=== PATIENT | male | born 1980 | race Caucasian/White ===

== ENCOUNTER 2019-02-08 19:00 | Inpatient (IN) | payer MEDICAID ==
[2019-02-09 00:07] LABS: ADD MAN DIFF? NO
[2019-02-09 00:13] LABS: BASOPHIL # 0.1 10^3/ul (0.0-0.1); BASOPHILS % 0.4 % (0.0-2.0); EOSINOPHILS # 0.2 10^3/ul (0.0-0.5); EOSINOPHILS % 1.5 % (0.0-7.0); HEMATOCRIT 31.8 % (42.0-52.0); HEMOGLOBIN 10.4 g/dl (14.0-18.0); LYMPHOCYTES % 14.5 % (15.0-51.0); MEAN CORPUSCULAR HEMOGLOBIN 27.7 pg (29.0-33.0); MEAN CORPUSCULAR HGB CONC 32.7 g/dl (32.0-37.0); MEAN CORPUSCULAR VOLUME 84.8 fl (82.0-101.0); MEAN PLATELET VOLUME 8.9 fl (7.4-10.4); MONOCYTE # 1.2 10^3/ul (0.3-0.9); MONOCYTES % 8.6 % (0.0-11.0); NEUTROPHIL # 10.3 10^3/ul (1.6-7.5); NEUTROPHILS % 74.5 % (39.0-77.0); PLATELET COUNT 321 10^3/UL (140-415); RED BLOOD COUNT 3.75 10^6/ul (4.70-6.10); RED CELL DISTRIBUTION WIDTH 12.8 % (11.5-14.5)
[2019-02-09 00:13] LABS: WHITE BLOOD COUNT 13.8 10^3/ul (4.8-10.8)
[2019-02-09 00:30] LABS: ALANINE AMINOTRANSFERASE 13 IU/L (13-69); ALBUMIN 3.4 g/dl (3.3-4.9); ALKALINE PHOSPHATASE 54 IU/L (42-121); ANION GAP 15 (5-13); ASPARTATE AMINO TRANSFERASE 20 IU/L (15-46); BILIRUBIN,INDIRECT 0.3 mg/dl (0-1.1); BILIRUBIN,TOTAL 0.3 mg/dl (0.2-1.3); BLOOD UREA NITROGEN 17 mg/dl (7-20); CALCIUM 8.5 mg/dl (8.4-10.2); CARBON DIOXIDE 27 mmol/L (21-31); CHLORIDE 95 mmol/L (97-110); CREATININE 0.59 mg/dl (0.61-1.24); Estimated GFR > 60 mL/min (>60); GLUCOSE 139 mg/dl (70-220); POTASSIUM 3.7 mmol/L (3.5-5.1); SODIUM 137 mmol/L (135-144)
[2019-02-09] MEDS: AMPICILLIN/SULB 3 GM/NS (PMX) 100 ML IVPB (01:20)
[2019-02-09] MEDS ORDERED: BISACODYL (EC) 5 MG TAB PO (04:30)
[2019-02-09] MEDS ORDERED: DOCUSATE SODIUM 100 MG CAP PO (04:30)
[2019-02-09] MEDS ORDERED: NACL 0.9% 3 ML SYG IV (04:30)
[2019-02-09] MEDS ORDERED: ONDANSETRON 4 MG INJ IV ×2 (04:30)
[2019-02-09] MEDS ORDERED: ACETAMINOPHEN 325 MG TAB PO (04:30)
[2019-02-09] MEDS: VANCOMYCIN IV PER PHARMACY XX (05:27)
[2019-02-09] MEDS: HYDROCODONE/APAP (5/325) TAB PO ×3 (06:15→16:40)
[2019-02-09] MEDS: ACETAMINOPHEN 325 MG TAB PO (06:15)
[2019-02-09 07:21] LABS: BARBITURATES Negative (NEGATIVE); BENZODIAZEPINES Negative (NEGATIVE); CANNABINOIDS Negative (NEGATIVE); COCAINE Negative (NEGATIVE)
[2019-02-09 07:38] LABS: OPIATES Positive (NEGATIVE)
[2019-02-09 07:40] LABS: AMPHETAMINE/METHAMPHETAMINE POSITIVE (NEGATIVE)
[2019-02-09 07:42] LABS: INR 1.14; PROTIME 14.7 Sec (11.9-14.9); PT RATIO 1.1
[2019-02-09 07:43] LABS: PARTIAL THROMBOPLASTIN TIME 39.3 Sec (23.0-35.0)
[2019-02-09 07:46] LABS: ETHANOL < 10.0 mg/dl (0-0)
[2019-02-09 07:48] LABS: IRON 11 ug/dl (35-150)
[2019-02-09 07:58] LABS: % IRON SATURATION 4 % SAT (22-52); TOTAL IRON BINDING CAPACITY 268 ug/dl (241-421)
[2019-02-09] MEDS: VANCOMYCIN HCL 1.25 GM in SOD CHLORIDE 0.9% 250 ML IVPB (08:08)
[2019-02-09] MEDS: SOD CHLORIDE 0.9% 100 ML (11:45)
[2019-02-09] MEDS: IOHEXOL 300MG/ML 150 ML BTL (11:45)
[2019-02-09] MEDS: PIPER-TAZO 3.375 GM IV (PMX) 100 ML IVPB ×3 (11:46→17:55)
[2019-02-09] MEDS: VANCOMYCIN 1 GM 250 ML IVPB (16:31)
[2019-02-10] MEDS: PIPER-TAZO 3.375 GM IV (PMX) 100 ML IVPB ×4 (00:03→17:31)
[2019-02-10] MEDS: VANCOMYCIN 1 GM 250 ML IVPB ×2 (00:04→09:21)
[2019-02-10 06:08] LABS: ADD MAN DIFF? NO
[2019-02-10 06:27] LABS: BASOPHIL # 0.1 10^3/ul (0.0-0.1); BASOPHILS % 0.4 % (0.0-2.0); EOSINOPHILS # 0.2 10^3/ul (0.0-0.5); EOSINOPHILS % 1.4 % (0.0-7.0); HEMATOCRIT 32.1 % (42.0-52.0); HEMOGLOBIN 10.3 g/dl (14.0-18.0); LYMPHOCYTES # 1.4 10^3/ul (0.8-2.9); MEAN CORPUSCULAR HEMOGLOBIN 27.8 pg (29.0-33.0); MEAN CORPUSCULAR HGB CONC 32.1 g/dl (32.0-37.0); MEAN CORPUSCULAR VOLUME 86.5 fl (82.0-101.0); MEAN PLATELET VOLUME 9.2 fl (7.4-10.4); MONOCYTE # 0.9 10^3/ul (0.3-0.9); MONOCYTES % 7.2 % (0.0-11.0); NEUTROPHIL # 9.8 10^3/ul (1.6-7.5); NEUTROPHILS % 79.3 % (39.0-77.0); PLATELET COUNT 295 10^3/UL (140-415); RED BLOOD COUNT 3.71 10^6/ul (4.70-6.10)
[2019-02-10 06:27] LABS: WHITE BLOOD COUNT 12.3 10^3/ul (4.8-10.8)
[2019-02-10 06:50] LABS: CHOL/HDL RATIO 2.7 RATIO; HDL CHOLESTEROL 30 mg/dl (28-63); LDL CHOLESTEROL,CALCULATED 45 mg/dl; TRIGLYCERIDES 38 mg/dl (0-149)
[2019-02-10 06:50] LABS: CHOLESTEROL 83 mg/dl (100-200)
[2019-02-10 06:57] LABS: BLOOD UREA NITROGEN 10 mg/dl (7-20)
[2019-02-10 06:57] LABS: CREATININE 0.58 mg/dl (0.61-1.24)
[2019-02-10 07:00] LABS: PHOSPHORUS 4.2 mg/dl (2.5-4.9)
[2019-02-10 07:02] LABS: MAGNESIUM 2.4 mg/dl (1.7-2.5)
[2019-02-10 07:21] LABS: HEMOGLOBIN A1C 5.9 % (0-5.9)
[2019-02-10 07:33] LABS: ERYTHROCYTE SEDIMENTATION RATE 45 mm/Hr (0-15)
[2019-02-10 07:54] LABS: VANCOMYCIN,TROUGH < 5.0 ug/ml (10.0-20.0)
[2019-02-10 08:26] LABS: C-REACTIVE PROTEIN 14.8 mg/dl (0.0-0.9)
[2019-02-10] MEDS: VANCOMYCIN HCL 1.25 GM in SOD CHLORIDE 0.9% 250 ML IVPB (16:32)
[2019-02-10] MEDS: LACTOBACILLUS RHAMNOSUS CAP PO (20:55)
[2019-02-11] MEDS: PIPER-TAZO 3.375 GM IV (PMX) 100 ML IVPB ×4 (00:07→19:03)
[2019-02-11] MEDS: VANCOMYCIN HCL 1.25 GM in SOD CHLORIDE 0.9% 250 ML IVPB ×3 (00:38→16:05)
[2019-02-11 07:42] LABS: ADD MAN DIFF? NO
[2019-02-11 07:44] LABS: BASOPHIL # 0.1 10^3/ul (0.0-0.1); BASOPHILS % 0.5 % (0.0-2.0); EOSINOPHILS # 0.2 10^3/ul (0.0-0.5); EOSINOPHILS % 1.2 % (0.0-7.0); HEMOGLOBIN 11.2 g/dl (14.0-18.0); LYMPHOCYTES # 1.2 10^3/ul (0.8-2.9); LYMPHOCYTES % 9.4 % (15.0-51.0); MEAN CORPUSCULAR HEMOGLOBIN 27.7 pg (29.0-33.0); MEAN CORPUSCULAR VOLUME 86.6 fl (82.0-101.0); MEAN PLATELET VOLUME 9.1 fl (7.4-10.4); MONOCYTE # 0.8 10^3/ul (0.3-0.9); MONOCYTES % 6.2 % (0.0-11.0); NEUTROPHIL # 10.9 10^3/ul (1.6-7.5); NEUTROPHILS % 82.2 % (39.0-77.0); PLATELET COUNT 374 10^3/UL (140-415); RED BLOOD COUNT 4.04 10^6/ul (4.70-6.10); RED CELL DISTRIBUTION WIDTH 13.1 % (11.5-14.5)
[2019-02-11 07:44] LABS: WHITE BLOOD COUNT 13.2 10^3/ul (4.8-10.8)
[2019-02-11 07:49] LABS: HAAIG REFLEX REFLEX FILED
[2019-02-11 08:16] LABS: ALANINE AMINOTRANSFERASE 96 IU/L (13-69); ALBUMIN 3.1 g/dl (3.3-4.9); ALBUMIN/GLOBULIN RATIO 1.14; ALKALINE PHOSPHATASE 145 IU/L (42-121); ANION GAP 10 (5-13); ASPARTATE AMINO TRANSFERASE 124 IU/L (15-46); BILIRUBIN,INDIRECT 0.2 mg/dl (0-1.1); BILIRUBIN,TOTAL 0.2 mg/dl (0.2-1.3); BLOOD UREA NITROGEN 9 mg/dl (7-20); CALCIUM 8.9 mg/dl (8.4-10.2); CARBON DIOXIDE 29 mmol/L (21-31); CHLORIDE 103 mmol/L (97-110); CREATININE 0.56 mg/dl (0.61-1.24); Estimated GFR > 60 mL/min (>60); GLUCOSE 102 mg/dl (70-220); POTASSIUM 4.7 mmol/L (3.5-5.1); SODIUM 142 mmol/L (135-144); TOTAL PROTEIN 5.8 g/dl (6.1-8.1)
[2019-02-11 08:47] LABS: HEPATITIS B SURFACE ANTIGEN NEGATIVE (NEGATIVE); THYROID STIMULATING HORMONE 0.202 MIU/L (0.465-4.680)
[2019-02-11 09:05] LABS: HEPATITIS B CORE ANTIBODY NEGATIVE (NEGATIVE); HEPATITIS C VIRAL ANTIBODY NEGATIVE (NEGATIVE)
[2019-02-11] MEDS: LACTOBACILLUS RHAMNOSUS CAP PO ×2 (09:20→20:40)
[2019-02-12] MEDS: PIPER-TAZO 3.375 GM IV (PMX) 100 ML IVPB ×2 (00:03→06:03)
[2019-02-12] MEDS: VANCOMYCIN HCL 1.25 GM in SOD CHLORIDE 0.9% 250 ML IVPB (00:55)
[2019-02-12 07:05] LABS: ADD MAN DIFF? NO
[2019-02-12 07:09] LABS: WHITE BLOOD COUNT 9.7 10^3/ul (4.8-10.8)
[2019-02-12 07:09] LABS: BASOPHILS % 0.4 % (0.0-2.0); EOSINOPHILS # 0.2 10^3/ul (0.0-0.5); EOSINOPHILS % 2.5 % (0.0-7.0); HEMATOCRIT 31.4 % (42.0-52.0); HEMOGLOBIN 9.8 g/dl (14.0-18.0); LYMPHOCYTES % 20.2 % (15.0-51.0); MEAN CORPUSCULAR HEMOGLOBIN 27.8 pg (29.0-33.0); MEAN CORPUSCULAR HGB CONC 31.2 g/dl (32.0-37.0); MEAN CORPUSCULAR VOLUME 89.2 fl (82.0-101.0); MEAN PLATELET VOLUME 8.5 fl (7.4-10.4); MONOCYTE # 0.8 10^3/ul (0.3-0.9); MONOCYTES % 8.3 % (0.0-11.0); NEUTROPHIL # 6.6 10^3/ul (1.6-7.5); NEUTROPHILS % 67.9 % (39.0-77.0); PLATELET COUNT 328 10^3/UL (140-415); RED BLOOD COUNT 3.52 10^6/ul (4.70-6.10); RED CELL DISTRIBUTION WIDTH 12.8 % (11.5-14.5)
[2019-02-12 07:33] LABS: ANION GAP 8 (5-13); BLOOD UREA NITROGEN 10 mg/dl (7-20); CALCIUM 8.6 mg/dl (8.4-10.2); CARBON DIOXIDE 27 mmol/L (21-31); CHLORIDE 107 mmol/L (97-110); CREATININE 0.74 mg/dl (0.61-1.24); Estimated GFR > 60 mL/min (>60); GLUCOSE 115 mg/dl (70-220); POTASSIUM 3.9 mmol/L (3.5-5.1); SODIUM 142 mmol/L (135-144)
[2019-02-12 07:43] LABS: VANCOMYCIN,TROUGH 24.5 ug/ml (10.0-20.0)
[2019-02-12 08:01] LABS: TRIIODOTHYRONINE 0.84 ng/ml (0.97-1.69)
[2019-02-12 08:03] LABS: FREE T4 (FREE THYROXINE) 1.32 ng/dl (0.79-2.35)
[2019-02-12] MEDS: ENOXAPARIN 40 MG/0.4 ML SYG SC (09:38)
[2019-02-12] MEDS: LACTOBACILLUS RHAMNOSUS CAP PO ×2 (09:38→21:03)
[2019-02-12] MEDS: TRIMETHOPRIM/SULFAMETHOX (PO SYG) NGT ×3 (13:01→21:04)
[2019-02-12] MEDS ORDERED: VANCOMYCIN HCL 1.25 GM in SOD CHLORIDE 0.9% 250 ML IVPB (14:00)
[2019-02-13] MEDS ORDERED: TRIMETHOPRIM/SULFAMETHOX (PO SYG) NGT (00:39)
[2019-02-13] MEDS: LACTOBACILLUS RHAMNOSUS CAP PO ×2 (09:22→21:14)
[2019-02-13] MEDS: ENOXAPARIN 40 MG/0.4 ML SYG SC (09:22)
[2019-02-13] MEDS: TRIMETHOPRIM/SULFAMETHOX (PO SYG) NGT ×2 (09:24→21:14)
[2019-02-13] MEDS: HYDROCODONE/APAP (10/325) TAB PO (09:29)
[2019-02-14] MEDS: LACTOBACILLUS RHAMNOSUS CAP PO (09:02)
[2019-02-14] MEDS: ENOXAPARIN 40 MG/0.4 ML SYG SC (09:03)
== END 2019-02-14 12:32 | disposition left against medical advice (07) | DRG 872 ==
LOC: E/R 02-09 06:15 → PP2 02-09 04:05
DX: A41.9 Sepsis, unspecified organism (principal); L03.114 Cellulitis of left upper limb; D64.9 Anemia, unspecified; F11.10 Opioid abuse, uncomplicated; F15.10 Other stimulant abuse, uncomplicated; F17.200 Nicotine dependence, unspecified, uncomplicated; R62.7 Adult failure to thrive; Z68.21 Body mass index [BMI] 21.0-21.9, adult; Z59.0 Homelessness; Z53.21 Procedure and treatment not carried out due to patient leaving prior to being seen by health care provider
CPT/HCPCS: 36415; 73200; 80048; 80053; 80061; 80202; 80307; 82565; 82728; 83036; 83540; 83735; 84100; 84439; 84443; 84480; 84520; 85025; 85610; 85651; 85730; 86140; 86704; 86709; 86803; 87040; 87340; 93971; 96365; 99285-25